=== PATIENT | female | born 2005 ===

== ENCOUNTER 2025-03-31 12:10 | Inpatient (IN) | payer SELFPAY ==
[2025-03-31] MEDS ORDERED: Etomidate 40 MG (20 mL) VIAL ONE (12:16)
[2025-03-31] MEDS ORDERED: Rocuronium Bromide 10 MG/ML (10ML VIAL) ONE (12:16)
[2025-03-31 12:31] LABS: #Basophils 0.07 10x3/uL (0.0-0.2); #Eosinophils 0.28 10x3/uL (0.0-0.7); #Monocytes 0.67 10x3/uL (0.11-0.59); #Neutrophils 6.27 10x3/uL (1.40-6.50); %Basophils 0.6 % (0.0-1.0); %Eosinophils 2.4 % (0.0-10.0); %Lymphocytes 36.2 % (21.0-51.0); %Monocytes 5.8 % (0.0-10.0); %Neutrophils 54.7 % (42.0-75.0); Hematocrit 36.9 % (36.0-47.0); Hemoglobin 12.0 g/dL (12.0-16.0); Mean Corpuscular Hemoglobin 28.9 pg (27.0-31.0); Mean Corpuscular Volume 88.9 fL (78.0-98.0); Platelet Count 290 10x3/uL (130-400); Red Blood Cell (RBC) Count 4.15 mill/uL (4.20-5.40); White Blood Cell (WBC) Count 11.47 10x3/uL (4.8-10.8)
[2025-03-31 12:43] LABS: Actual Bicarbonate (HCO3a) 19.7 mEq/L (22-28); Analyzer IN Cardio ER; Base Excess (BEa) -3.4 mEq/L (-2.0 to +3.0); CO2 Tension 29.6 mmHg (35.0-45.0); Calcium, Ionized (arterial) 1.01 mmol/L (1.12-1.30); Hematocrit-ABG 34 % (36.0-47.0); Hemoglobin (Hb) 11.6 g/dL (12.0-16.0); O2 Tension (PaO2), arterial 461.7 mmHg (80.0-100.0); Potassium - ABG Lab 2.79 mmol/L (3.70-5.30); pH, Arterial 7.441 (7.35-7.45)
[2025-03-31 12:45] LABS: INR-International Normal Ratio 1.2; Prothrombin Time 15.7 sec (12.0-14.7)
[2025-03-31 12:46] LABS: PTT 24.0 sec (22.9-36.1)
[2025-03-31 12:49] LABS: ALT (SGPT) 24 U/L (Less than 34); AST (SGOT) 72 U/L (11-34); Albumin 3.8 g/dL (3.1-4.5); Alkaline Phosphatase 75 U/L (40-110); Anion Gap 11 mmol/L (10-20); BUN (Urea Nitrogen) 7 mg/dL (7.0-18.7); Bilirubin, Total 0.2 mg/dL (0.3-1.2); Calc. Creatinine Clearance 0 mL/min (70-130); Calcium 8.1 mg/dL (7.8-10.44); Carbon Dioxide 22 mmol/L (22-29); Chloride 108 mmol/L (98-107); Globulin 2.6 g/dL (2.4-3.5); Glucose 123 mg/dL (70-105); Lipase 16 U/L (8-78); Potassium 3.2 mmol/L (3.5-5.1); Sodium 138 mmol/L (136-145)
[2025-03-31 12:50] LABS: Puncture Site Right Radial artery
[2025-03-31] MEDS ORDERED: CEFAZOLIN 2 GM VIAL ONE (12:55)
[2025-03-31 13:16] LABS: BHCG - Serum Negative (NEGATIVE); Pregs Control Background? CLEAR/WHITE (CLR/WHITE); Pregs Control Bar Appear? YES (CONTROL BAR)
[2025-03-31 13:21] LABS: Bacteria/HPF None Seen HPF (None Seen); CAUTI Indications for Culture Alt mental st,lethar; Glucose, Urine (Dipstick) Normal (Negative); Leukocyte Negative Leu/uL (Negative); Protein, Urine (Dipstick) Negative (Neg-Trace); RBC/HPF None Seen HPF (0-3); Specific Gravity, Urine 1.021 (1.002-1.036); WBC/HPF 0-3 HPF (0-3)
[2025-03-31 13:28] LABS: Cocaine Metabolite Screen Negative (Negative); THC/Cannabinoid Screen Negative (Negative); Tricyclic Screen Negative (Negative)
[2025-03-31 13:30] LABS: Urine Culture Reflex No No
[2025-03-31] MEDS ORDERED: levETIRAcetam 500 MG (5 mL) VIAL ONE (13:36)
[2025-03-31 14:02] LABS: Magnesium 2.0 mg/dL (1.6-2.6)
[2025-03-31] MEDS ORDERED: Iopamidol-370 76% 500 ML MDV (1 ML CHARGE) ONE (14:34)
[2025-03-31] MEDS ORDERED: Fentanyl BOLUS 100 ML IVPB PRN (15:30)
[2025-03-31] MEDS ORDERED: DISCONTINUE PREVIOUS NARCOTIC PAIN MEDICATIONS AND BENZODIAZEPINES FS SCH (15:30)
[2025-03-31] MEDS ORDERED: Propofol BOLUS 1,000 MG/100 ML VIAL IV PRN (15:30)
[2025-03-31] MEDS: IN SODIUM CHLORIDE IVPB SCH (15:46)
[2025-03-31] MEDS: ADMIXTURE FEE IVPB SCH (15:46)
[2025-03-31] MEDS: TETANUS, DIPHTHERIA TOX,ADULT (TDVAX) 0.5 ML VIAL IM ONE (15:59)
[2025-03-31 17:33] VITALS: BMI 24.5
[2025-03-31] MEDS: Famotidine/PF 20 mg/2ml Vial SLOW IVP SCH (21:25)
[2025-04-01 03:21] LABS: #Basophils 0.04 10x3/uL (0.0-0.2); #Eosinophils Less than 0.03 10x3/uL (0.0-0.7); #Monocytes 0.92 10x3/uL (0.11-0.59); #Neutrophils 11.05 10x3/uL (1.40-6.50); %Basophils 0.3 % (0.0-1.0); %Eosinophils 0.1 % (0.0-10.0); %Lymphocytes 7.7 % (21.0-51.0); %Monocytes 7.0 % (0.0-10.0); %Neutrophils 84.7 % (42.0-75.0); Hematocrit 34.0 % (36.0-47.0); Hemoglobin 11.3 g/dL (12.0-16.0); Mean Corpuscular Hemoglobin 29.4 pg (27.0-31.0); Mean Corpuscular Volume 88.3 fL (78.0-98.0); Platelet Count 218 10x3/uL (130-400); Red Blood Cell (RBC) Count 3.85 mill/uL (4.20-5.40); White Blood Cell (WBC) Count 13.06 10x3/uL (4.8-10.8)
[2025-04-01 04:47] LABS: ALT (SGPT) 25 U/L (Less than 34); AST (SGOT) 54 U/L (11-34); Albumin 3.6 g/dL (3.1-4.5); Alkaline Phosphatase 69 U/L (40-110); Anion Gap 13 mmol/L (10-20); BUN (Urea Nitrogen) 6 mg/dL (7.0-18.7); Bilirubin, Total 0.4 mg/dL (0.3-1.2); Calc. Creatinine Clearance 150 mL/min (70-130); Calcium 7.9 mg/dL (7.8-10.44); Carbon Dioxide 18 mmol/L (22-29); Chloride 113 mmol/L (98-107); Globulin 2.7 g/dL (2.4-3.5); Glucose 100 mg/dL (70-105); Potassium 3.5 mmol/L (3.5-5.1); Sodium 140 mmol/L (136-145)
[2025-04-01] MEDS: DC Sedation Protocol FS ONE (07:10)
[2025-04-01] MEDS: Ondansetron PF 4 MG/2 ML Vial ONE (08:26)
[2025-04-01] MEDS: Mupirocin 1 GM TUBE NASAL DECOLONIZATION TP SCH (10:56)
[2025-04-01] MEDS: levETIRAcetam 500 MG (5 mL) VIAL SLOW IVP SCH ×2 (10:56→20:11)
[2025-04-01] MEDS: Ondansetron PF 4 MG/2 ML Vial IVP PRN (11:08)
[2025-04-01] MEDS: Acetaminophen/Codeine 30-300mg Tablet PO PRN (11:31)
[2025-04-01] MEDS: HYDROcodone/Acetaminophen 5/325 mg Tablet PO PRN (13:57)
[2025-04-01] MEDS: Mupirocin 1 GM TUBE NASAL DECOLONIZATION NASAL SCH (20:11)
[2025-04-02 04:26] LABS: ALT (SGPT) 22 U/L (Less than 34); AST (SGOT) 52 U/L (11-34); Albumin 3.3 g/dL (3.1-4.5); Alkaline Phosphatase 64 U/L (40-110); Anion Gap 9 mmol/L (10-20); BUN (Urea Nitrogen) 4 mg/dL (7.0-18.7); Bilirubin, Total 0.5 mg/dL (0.3-1.2); Calc. Creatinine Clearance 156 mL/min (70-130); Calcium 8.1 mg/dL (7.8-10.44); Carbon Dioxide 24 mmol/L (22-29); Chloride 108 mmol/L (98-107); Globulin 2.7 g/dL (2.4-3.5); Glucose 119 mg/dL (70-105); Potassium 3.2 mmol/L (3.5-5.1); Sodium 138 mmol/L (136-145)
[2025-04-02] MEDS ORDERED: PHOS-NAK 1 PKT PACK PO PRN (04:45)
[2025-04-02] MEDS ORDERED: Electrolyte Replacement Protocol 1 EACH FS SCH (04:45)
[2025-04-02] MEDS ORDERED: Magnesium 2 GM/50 ML(in water) 2 GM in Premix 1 BAG IVPB PRN (04:45)
[2025-04-02] MEDS ORDERED: Potassium Chloride 20 MEQ in Premix 1 BAG IVPB PRN (04:45)
[2025-04-02 09:20] LABS: #Basophils Less than 0.03 10x3/uL (0.0-0.2); #Eosinophils 0.05 10x3/uL (0.0-0.7); #Monocytes 0.59 10x3/uL (0.11-0.59); #Neutrophils 6.50 10x3/uL (1.40-6.50); %Basophils 0.2 % (0.0-1.0); %Eosinophils 0.6 % (0.0-10.0); %Lymphocytes 13.5 % (21.0-51.0); %Monocytes 7.1 % (0.0-10.0); %Neutrophils 78.4 % (42.0-75.0); Hematocrit 34.9 % (36.0-47.0); Hemoglobin 11.4 g/dL (12.0-16.0); Mean Corpuscular Hemoglobin 29.4 pg (27.0-31.0); Mean Corpuscular Volume 89.9 fL (78.0-98.0); Platelet Count 225 10x3/uL (130-400); Red Blood Cell (RBC) Count 3.88 mill/uL (4.20-5.40); White Blood Cell (WBC) Count 8.30 10x3/uL (4.8-10.8)
[2025-04-02 09:33] LABS: Potassium 3.4 mmol/L (3.5-5.1)
[2025-04-02 14:19] LABS: Potassium 3.6 mmol/L (3.5-5.1)
[2025-04-03 04:48] LABS: ALT (SGPT) 21 U/L (Less than 34); AST (SGOT) 41 U/L (11-34); Albumin 3.4 g/dL (3.1-4.5); Alkaline Phosphatase 64 U/L (40-110); Anion Gap 13 mmol/L (10-20); BUN (Urea Nitrogen) Less than 4 mg/dL (7.0-18.7); Bilirubin, Total 0.3 mg/dL (0.3-1.2); Calc. Creatinine Clearance 146 mL/min (70-130); Calcium 8.6 mg/dL (7.8-10.44); Carbon Dioxide 22 mmol/L (22-29); Chloride 109 mmol/L (98-107); Globulin 2.9 g/dL (2.4-3.5); Glucose 109 mg/dL (70-105); Potassium 3.7 mmol/L (3.5-5.1); Sodium 140 mmol/L (136-145)
[2025-04-03 12:11] VITALS: BP 113/74; TEMP 98.2
[2025-04-07] MEDS ORDERED: FLU (Fluarix Triv) 25-26 (6MOS UP)/PF 45 MCG/0.5 ML Syringe IM ONE (09:00)
== END 2025-04-03 15:35 | disposition home or self-care (01) | DRG 82 ==
LOC: ERS 12:10 → CCU 13:08 → 2SE 04-01 12:11
PROVIDERS: ADMIT Surgery; ATTEND Surgery
PROC: 0T9B70Z Drainage of Bladder with Drainage Device, Via Natural or Artificial Opening (ICD-10-PCS; principal; 2025-03-31)
PROC: 5A1935Z Respiratory Ventilation, Less than 24 Consecutive Hours (ICD-10-PCS; 2025-03-31)
PROC: 4A033R1 Measurement of Arterial Saturation, Peripheral, Percutaneous Approach (ICD-10-PCS; 2025-03-31)
DX: S06.5XAA Traumatic subdural hemorrhage with loss of consciousness status unknown, initial encounter (principal); J96.00 Acute respiratory failure, unspecified whether with hypoxia or hypercapnia; R40.2212 Coma scale, best verbal response, none, at arrival to emergency department; R40.2112 Coma scale, eyes open, never, at arrival to emergency department; R40.2312 Coma scale, best motor response, none, at arrival to emergency department; K59.00 Constipation, unspecified; V29.60 Unspecified motorcycle rider injured in collision with unspecified motor vehicles in traffic accident; S06.6XAA Traumatic subarachnoid hemorrhage with loss of consciousness status unknown, initial encounter
CPT/HCPCS: 36415; 36600; 70450; 70496; 70498; 71045; 71260; 72125; 72170; 74018; 74177; 80053; 80306; 80307; 81001; 82805; 83690; 83735; 84100; 84703; 85025; 85610; 85730; 86850; 86900; 86901; 90715; 93005; 94002; 94003; 94760; G0390; J1308; J1953; J2405; J2704; J3010; J7030; J7131; Q9967